=== PATIENT | male | born 1985 | race Caucasian/White ===

== ENCOUNTER 2017-07-21 17:00 | Emergency (ER) | payer SELFPAY ==
[~2017-07-21] VITALS: Ht 185.4 cm; Wt 67.0 kg
[2017-07-21 18:23] LABS: HEMATOCRIT 36.3 % (38.0-50.0); HEMOGLOBIN 12.4 G/DL (12.5-16.6); MCHC 34.2 G/DL (30.0-36.0); MCV 87.9 FL (86-99); PLATELET COUNT 203 K/uL (156-360); RBC DIS.WIDTH-SD 41.7 % (39-53); RED BLOOD COUNT 4.13 M/uL (4.00-5.50); WHITE BLOOD COUNT 11.3 K/uL (4.1-10.2)
[2017-07-21 18:32] LABS: ALBUMIN 3.7 g/dL (3.2-4.8); CHLORIDE 104 mEq/L (99-109); POTASSIUM 3.7 mEq/L (3.7-5.4); SODIUM 140 mEq/L (136-147)
[2017-07-21 18:34] LABS: GLUCOSE 104 mg/dL (70-99); TOTAL PROTEIN 6.8 g/dL (6.4-8.3)
[2017-07-21 18:36] LABS: TOTAL BILIRUBIN 0.5 mg/dL (0.0-1.0)
[2017-07-21 18:37] LABS: SERUM ETHYL ALCOHOL < 10 mg/dL
[2017-07-21 18:38] LABS: ALKALINE PHOSPHATASE 97 IU/L (3-129); GFR ESTIMATE (CALCULATED) > 59 mL/min/ (58.99-99999)
[2017-07-21 18:39] LABS: AST (GOT) 16 IU/L (2-34)
[2017-07-21 18:40] LABS: UREA NITROGEN (BUN) 13 mg/dL (9-23)
[2017-07-21 18:41] LABS: SALICYLATE < 5.0 MG/DL (15-30)
[2017-07-21 18:42] LABS: ACETAMINOPHEN (TYLENOL) < 10 mcg/mL (10-30); ALT (GPT) 21 IU/L (3-49)
[2017-07-21 19:18] LABS: APPEARANCE SL.HAZY ((CLEAR)); BILIRUBIN NEGATIVE; BLOOD NEGATIVE; COLOR YELLOW ((YELLOW)); GLUCOSE (STRIP) NEGATIVE; KETONES 5; LEUKOCYTES NEGATIVE; NITRITE NEGATIVE; PROTEIN (STRIP) 100; SPECIFIC GRAVITY 1.029 (1.000-1.030)
[2017-07-21 19:28] LABS: AMPHETAMINE NEGATIVE (500 ng/mL); BARBITURATES NEGATIVE (200 ng/mL); BENZODIAZEPINES NEGATIVE (150 ng/mL); BUPRENORPHINE NEGATIVE (10 ng/mL); COCAINE PRESUMPTIVE POSITIVE (150 ng/mL); METHADONE NEGATIVE (200 ng/mL); METHAMPHETAMINE PRESUMPTIVE POSITIVE (500 ng/mL); OPIATES (MORPHINE) NEGATIVE (100 ng/mL); OXYCODONE NEGATIVE (100 ng/mL); PHENCYCLIDINE NEGATIVE (25 ng/mL); PROPOXYPHENE NEGATIVE (300 ng/mL); THC CANNABINOIDS PRESUMPTIVE POSITIVE (50 ng/mL); TRICYCLIC ANTIDEPRESSANTS NEGATIVE (300 ng/mL)
[2017-07-21 19:38] LABS: BACTERIA 1+ /HPF; EPITHELIAL CELLS 1+ /HPF; MUCUS 2+ /LPF; RED BLOOD CELLS 0-5 /HPF (0-5); WHITE BLOOD CELLS 0-5 /HPF (0-5)
[2017-07-21 21:50] VITALS: BP 102/86
== END 2017-07-21 22:11 | disposition home or self-care (01) ==
LOC: EME 17:00
PROVIDERS: Emergency Medicine
DX: T50.991A Poisoning by other drugs, medicaments and biological substances, accidental (unintentional), initial encounter (principal); F17.200 Nicotine dependence, unspecified, uncomplicated
CPT/HCPCS: 71045; 80053; 81003; 84999; 85027; 93005; 99281; 99285; G0480; J7030